=== PATIENT | female | born 1940 | race Caucasian/White ===

== ENCOUNTER 2019-05-18 09:27 | Inpatient (IN) | payer MEDICARE, BC ==
[~2019-05-18] VITALS: Ht 165.1 cm; Wt 49.5 kg
[2019-05-28 08:00] VITALS: BP 170/79
== END 2019-05-28 15:17 | disposition home health service (06) | DRG 329 ==
LOC: ED 12:38 → EDIP 13:23 → 4EST 14:41 → 4WST 23:57
PROVIDERS: ADMIT Internal Medicine; ATTEND Internal Medicine
PROC: 0DJ08ZZ Inspection of Upper Intestinal Tract, Via Natural or Artificial Opening Endoscopic (ICD-10-PCS; principal; 2019-05-20)
PROC: 0DBH8ZX Excision of Cecum, Via Natural or Artificial Opening Endoscopic, Diagnostic (ICD-10-PCS; 2019-05-20)
PROC: 0DBN8ZX Excision of Sigmoid Colon, Via Natural or Artificial Opening Endoscopic, Diagnostic (ICD-10-PCS; 2019-05-20)
PROC: 0DBM0ZZ Excision of Descending Colon, Open Approach (ICD-10-PCS; 2019-05-25)
PROC: 0DJD4ZZ Inspection of Lower Intestinal Tract, Percutaneous Endoscopic Approach (ICD-10-PCS; 2019-05-25)
PROC: 0DBL0ZZ Excision of Transverse Colon, Open Approach (ICD-10-PCS; 2019-05-25)
PROC: 3E0T3BZ Introduction of Anesthetic Agent into Peripheral Nerves and Plexi, Percutaneous Approach (ICD-10-PCS; 2019-05-25)
PROC: 8E0W0CZ Robotic Assisted Procedure of Trunk Region, Open Approach (ICD-10-PCS; 2019-05-25)
DX: C18.6 Malignant neoplasm of descending colon (principal); E43 Unspecified severe protein-calorie malnutrition; K63.3 Ulcer of intestine; I27.82 Chronic pulmonary embolism; D68.59 Other primary thrombophilia; Z68.1 Body mass index [BMI] 19.9 or less, adult; C18.7 Malignant neoplasm of sigmoid colon; C18.4 Malignant neoplasm of transverse colon; D12.0 Benign neoplasm of cecum; F17.210 Nicotine dependence, cigarettes, uncomplicated; G25.0 Essential tremor; I44.1 Atrioventricular block, second degree; M81.0 Age-related osteoporosis without current pathological fracture; R62.7 Adult failure to thrive; K57.30 Diverticulosis of large intestine without perforation or abscess without bleeding; I10 Essential (primary) hypertension; Z66 Do not resuscitate; Z79.01 Long term (current) use of anticoagulants; Z86.718 Personal history of other venous thrombosis and embolism; Z90.49 Acquired absence of other specified parts of digestive tract; Z90.710 Acquired absence of both cervix and uterus; Z79.899 Other long term (current) drug therapy; Z91.013 Allergy to seafood; Z91.048 Other nonmedicinal substance allergy status; Z91.041 Radiographic dye allergy status
CPT/HCPCS: 36415; 74177; 80048; 80053; 81003; 81288; 82962; 83690; 83735; 84484; 85025; 85610; 85730; 86850; 86900; 88305; 88309; 88341; 88342; 93005; 96374; 96375; 99285; G0378; J0690; J1100; J1170; J1650; J2405; J2550; J2704; J2710; J3010; Q9967; A4648; C9113; J0330; J0360; J1200; J2270; J3475; J3480; J3490; J7030

== ENCOUNTER → 2020-07-26 | Outpatient (CLI) | payer MEDICARE, BC ==
[~2020-07-26] MED LIST: APIX5TAB PO; CHOL10003 PO; LISI1TAB23 PO; LISI1TAB39 PO; PROP120C50 PO; VITA1TAB19 PO
[2020-07-26 12:49] LABS: ALBUMIN 3.7 g/dL (3.4-5.0); CALCIUM 9.3 mg/dL (8.5-10.1); CHLORIDE 110 mmol/L (98-107)
[2020-07-26 12:57] LABS: ALANINE AMINOTRANSFERASE 16 U/L (12-78); ALKALINE PHOSPHATASE 65 U/L (45-117); ANION GAP 2 mmol/L (5-15); BILIRUBIN,TOTAL 0.5 mg/dL (0.2-1.0); CREATININE 0.85 mg/dL (0.55-1.02); TOTAL PROTEIN 7.6 g/dL (6.4-8.2)
== END | disposition home or self-care (01) ==
LOC: STAR 10:52
PROVIDERS: ATTEND Internal Medicine Geriatric Medicine
DX: Z01.812 Encounter for preprocedural laboratory examination (principal); Z20.828 Contact with and (suspected) exposure to other viral communicable diseases; Z85.038 Personal history of other malignant neoplasm of large intestine
CPT/HCPCS: 36415; 80053; 87635; 93005

== ENCOUNTER 2020-07-31 08:46 | Day surgery (SDC) | payer MEDICARE, BC ==
[~2020-07-31] VITALS: Ht 167.6 cm; Wt 54.1 kg
[2020-07-31] MEDS ORDERED: MIDAZOLAM 1 MG/ML, 2ML ONE (09:44)
[2020-07-31] MEDS ORDERED: FENTANYL PF 100 MCG/2ML ONE (09:44)
[2020-07-31 09:47] VITALS: BP 167/74
[2020-07-31] MEDS ORDERED: CHLORHEXIDINE 15 ML UDC ONE (09:53)
[2020-07-31] MEDS ORDERED: FENTANYL PF 100 MCG/2ML IV PRN (10:00)
[2020-07-31] MEDS ORDERED: HYDROcodone/APAP 7.5-325MG/15ML UDC PO PRN (10:00)
[2020-07-31] MEDS ORDERED: ACETAMINOPHEN 325 MG TABLET PO PRN (10:00)
[2020-07-31] MEDS ORDERED: CHLORHEXIDINE 15 ML UDC MM ONE (10:00)
[2020-07-31] MEDS ORDERED: hydrALAzine 20 MG/ML, 1ML IV PRN (10:00)
[2020-07-31] MEDS ORDERED: PROMETHAZINE 25 MG/ML, 1ML IVPush PRN (10:00)
[2020-07-31] MEDS ORDERED: LACTATED RINGERS 1,000 ML IV SCH (10:00)
[2020-07-31] MEDS ORDERED: morphine SULFATE 10 MG/ML, 1ML IVPush PRN (10:00)
[2020-07-31] MEDS ORDERED: LABETALOL 5MG/ML, 20ML IV PRN (10:00)
[2020-07-31] MEDS ORDERED: ONDANSETRON 2MG/ML, 2ML IVPush PRN (10:00)
[2020-07-31] MEDS ORDERED: PROPOFOL 10 MG/ML, 20ML ONE ×2 (10:53)
== END 2020-07-31 13:10 | disposition home or self-care (01) ==
LOC: OUT 08:46
PROVIDERS: ATTEND Internal Medicine Geriatric Medicine
DX: Z08 Encounter for follow-up examination after completed treatment for malignant neoplasm (principal); C18.6 Malignant neoplasm of descending colon; K63.5 Polyp of colon; I10 Essential (primary) hypertension; F17.210 Nicotine dependence, cigarettes, uncomplicated; Z88.8 Allergy status to other drugs, medicaments and biological substances; Z91.013 Allergy to seafood; Z72.89 Other problems related to lifestyle; Z86.010 Personal history of colon polyps; Z79.01 Long term (current) use of anticoagulants; Z82.3 Family history of stroke; Z82.49 Family history of ischemic heart disease and other diseases of the circulatory system
CPT/HCPCS: 45378; J2250; J2704; J3010; J7120

== ENCOUNTER → 2020-08-31 | Outpatient (CLI) | payer MEDICARE, BC ==
[~2020-08-31] MED LIST changes: +METR-90 PO; +NEOMYCIN
[2020-08-31 14:22] LABS: ALBUMIN 3.6 g/dL (3.4-5.0); ANION GAP 5 mmol/L (5-15); CALCIUM 9.2 mg/dL (8.5-10.1); CHLORIDE 110 mmol/L (98-107)
[2020-08-31 14:27] LABS: ALANINE AMINOTRANSFERASE 14 U/L (12-78); ALKALINE PHOSPHATASE 66 U/L (45-117); BILIRUBIN,TOTAL 0.4 mg/dL (0.2-1.0); CREATININE 0.93 mg/dL (0.55-1.02); TOTAL PROTEIN 7.4 g/dL (6.4-8.2)
[2020-08-31 14:33] LABS: BASOPHILS % (AUTO) 1 % (0-1); EOSINOPHILS % (AUTO) 1 % (1-7); LYMPHOCYTES % (AUTO) 21 % (22-44); MEAN CORPUSCULAR HEMOGLOBIN 24.1 pg (27.0-34.8); MEAN CORPUSCULAR HGB CONC 31.3 g/dL (32.4-35.8); MEAN PLATELET VOLUME 9.8 fL (7.4-10.4); MONOCYTES % (AUTO) 8 % (2-9); NEUTROPHILS % (AUTO) 70 % (42-75); PLATELET COUNT 265 x10^3/uL (130-400); RED BLOOD COUNT 4.41 x10^6/uL (3.82-5.3)
[2020-08-31 14:58] LABS: MD NO
== END | disposition home or self-care (01) ==
LOC: STAR 12:11
PROVIDERS: ATTEND Surgery
DX: Z01.812 Encounter for preprocedural laboratory examination (principal); Z20.828 Contact with and (suspected) exposure to other viral communicable diseases
CPT/HCPCS: 36415; 80053; 85025; 87635

== ENCOUNTER 2020-09-05 08:18 | Inpatient (IN) | payer MEDICARE, BC ==
[~2020-09-05] VITALS: Ht 167.6 cm; Wt 58.0 kg
[~2020-09-05 08:18] MED LIST changes: +BUPIVACAINE/PF 0.5% ONE
[2020-09-05] MEDS ORDERED: HYDROmorphone 1 MG/ML, 1ML INJ IVPush PRN (09:00)
[2020-09-05] MEDS ORDERED: EPHEDRINE 50 MG/ML, 1ML IVPush PRN (09:00)
[2020-09-05] MEDS ORDERED: hydrALAzine 20 MG/ML, 1ML IV PRN (09:00)
[2020-09-05] MEDS ORDERED: PROMETHAZINE 25 MG/ML, 1ML IVPush PRN (09:00)
[2020-09-05] MEDS ORDERED: ONDANSETRON 2MG/ML, 2ML IVPush PRN ×2 (09:00→11:30)
[2020-09-05] MEDS ORDERED: ACETAMINOPHEN 325 MG TABLET PO PRN (09:00)
[2020-09-05] MEDS ORDERED: LABETALOL 5MG/ML, 20ML IV PRN (09:00)
[2020-09-05] MEDS ORDERED: OXYcodone 5 MG/5 ML ORAL.SOL UDC PO PRN (09:00)
[2020-09-05] MEDS ORDERED: LORazepam 2 MG/ML, 1ML IVPush PRN ×2 (09:00→11:30)
[2020-09-05] MEDS ORDERED: METHOCARBAMOL 1,000 MG in DEXTROSE 5% 100 ML IV PRN (09:00)
[2020-09-05 09:21] VITALS: BP 137/80
[2020-09-05] MEDS ORDERED: FENTANYL PF 250 MCG/5ML ONE (09:23)
[2020-09-05] MEDS ORDERED: CHLORHEXIDINE 15 ML UDC ONE (09:24)
[2020-09-05] MEDS ORDERED: CHLORHEXIDINE 15 ML UDC MM ONE (09:30)
[2020-09-05] MEDS ORDERED: LACTATED RINGERS 1,000 ML IV SCH (09:30)
[2020-09-05] MEDS ORDERED: ROCURONIUM 10MG/ML,5ML ONE (09:37)
[2020-09-05] MEDS ORDERED: KETOROLAC 30 MG/1 ML ONE (09:37)
[2020-09-05] MEDS ORDERED: NEOSTIGMINE 1 MG/ML, 10ML ONE (09:37)
[2020-09-05] MEDS ORDERED: CEFAZOLIN 1,000 MG ONE (09:37)
[2020-09-05] MEDS ORDERED: GLYCOPYRROLATE 0.2MG/1ML, 5ML ONE (09:37)
[2020-09-05] MEDS ORDERED: LIDOCAINE 4%, 4 ML SYR/CANN TP ONE (09:37)
[2020-09-05] MEDS ORDERED: ONDANSETRON 2MG/ML, 2ML ONE ×2 (09:37→12:33)
[2020-09-05] MEDS ORDERED: DEXAMETHASONE 4 MG/ML, 1ML ONE (09:37)
[2020-09-05] MEDS ORDERED: SUCCINYLCHOLINE 20 MG/ML, 10ML ONE (09:37)
[2020-09-05] MEDS ORDERED: PROPOFOL 10 MG/ML, 20ML ONE (09:37)
[2020-09-05] MEDS ORDERED: DIPHENHYDRAMINE 25 MG CAPSULE PO PRN (11:30)
[2020-09-05] MEDS ORDERED: DEXAMETHASONE 4 MG/ML, 1ML IVPush PRN (11:30)
[2020-09-05] MEDS ORDERED: CALCIUM CARBONATE 500 MG TAB.CHEW PO PRN (11:30)
[2020-09-05] MEDS ORDERED: TRAZODONE 50MG TABLET PO PRN (11:30)
[2020-09-05] MEDS ORDERED: HALOPERIDOL 5 MG/ML IVPush PRN (11:30)
[2020-09-05] MEDS: ACETAMINOPHEN 500 MG TABLET PO SCH ×3 (11:30→23:30)
[2020-09-05] MEDS: D5%-0.45NACL+KCL 20MEQ 1,000 ML IV SCH ×2 (11:30→13:50)
[2020-09-05] MEDS ORDERED: MORPHINE SULFATE 4 MG/ML, 1ML IVPush PRN (11:30)
[2020-09-05] MEDS ORDERED: DIPHENHYDRAMINE 50 MG/ML, 1ML IVPush PRN (11:30)
[2020-09-05] MEDS ORDERED: OXYcodone 5 MG/5 ML ORAL.SOL UDC ONE (11:33)
[2020-09-05] MEDS ORDERED: FENTANYL PF 100 MCG/2ML ONE (11:33)
[2020-09-05] MEDS ORDERED: HYDROmorphone 1 MG/ML, 1ML INJ ONE (11:33)
[2020-09-05] MEDS: FENTANYL PF 100 MCG/2ML IV PRN ×2 (11:35→11:42)
[2020-09-05 13:42] VITALS: BP 119/54
[2020-09-05] MEDS: ACETAMINOPHEN 100 ML IVPB SCH ×2 (13:50→19:47)
[2020-09-05] MEDS ORDERED: ENOXAPARIN 40 MG/0.4 ML SQ SCH (14:00)
[2020-09-05 19:10] VITALS: BP 124/74
[2020-09-05] MEDS: OXYcodone IR 5MG TABLET PO PRN (19:56)
[2020-09-05 23:19] VITALS: BP 145/56
[2020-09-06] MEDS: ACETAMINOPHEN 100 ML IVPB SCH ×2 (01:57→08:43)
[2020-09-06 03:21] LABS: BASOPHILS % (AUTO) 0 % (0-1); EOSINOPHILS % (AUTO) 0 % (1-7); LYMPHOCYTES % (AUTO) 6 % (22-44); MEAN CORPUSCULAR HEMOGLOBIN 23.7 pg (27.0-34.8); MEAN CORPUSCULAR HGB CONC 31.2 g/dL (32.4-35.8); MEAN PLATELET VOLUME 9.5 fL (7.4-10.4); MONOCYTES % (AUTO) 7 % (2-9); NEUTROPHILS % (AUTO) 87 % (42-75); PLATELET COUNT 208 x10^3/uL (130-400); RED BLOOD COUNT 3.78 x10^6/uL (3.82-5.3); RED CELL DISTRIBUTION WIDTH 16.5 % (9.6-15.2)
[2020-09-06 03:23] LABS: MD NO
[2020-09-06 03:24] LABS: ANION GAP 10 mmol/L (5-15); CALCIUM 8.1 mg/dL (8.5-10.1); CHLORIDE 102 mmol/L (98-107); CREATININE 1.28 mg/dL (0.55-1.02)
[2020-09-06 03:25] VITALS: BP 144/61
[2020-09-06] MEDS: OXYcodone IR 5MG TABLET PO PRN (04:10)
[2020-09-06] MEDS: ACETAMINOPHEN 500 MG TABLET PO SCH ×3 (04:14→21:18)
[2020-09-06 06:30] VITALS: BP 144/71
[2020-09-06] MEDS: PROPRANOLOL 120 MG CAP.SA.24H PO SCH (08:44)
[2020-09-06] MEDS: HYDROCHLOROTHIAZIDE 12.5 MG CAPSULE PO SCH (08:45)
[2020-09-06] MEDS: LISINOPRIL 20 MG TABLET PO SCH (08:45)
[2020-09-06 13:45] VITALS: BP 131/70
[2020-09-06 19:38] VITALS: BP 132/66
[2020-09-07 02:22] VITALS: BP 110/57
[2020-09-07 03:31] LABS: ANION GAP 9 mmol/L (5-15); CALCIUM 8.3 mg/dL (8.5-10.1); CHLORIDE 104 mmol/L (98-107); CREATININE 1.11 mg/dL (0.55-1.02)
[2020-09-07] MEDS: ACETAMINOPHEN 500 MG TABLET PO SCH ×4 (03:39→21:00)
[2020-09-07 03:50] LABS: BASOPHILS % (AUTO) 1 % (0-1); EOSINOPHILS % (AUTO) 1 % (1-7); LYMPHOCYTES % (AUTO) 20 % (22-44); MEAN CORPUSCULAR HEMOGLOBIN 23.9 pg (27.0-34.8); MEAN CORPUSCULAR HGB CONC 31.5 g/dL (32.4-35.8); MEAN PLATELET VOLUME 9.6 fL (7.4-10.4); MONOCYTES % (AUTO) 12 % (2-9); NEUTROPHILS % (AUTO) 67 % (42-75); PLATELET COUNT 179 x10^3/uL (130-400); RED BLOOD COUNT 3.49 x10^6/uL (3.82-5.3); RED CELL DISTRIBUTION WIDTH 16.6 % (9.6-15.2)
[2020-09-07 03:52] LABS: MD NO
[2020-09-07 07:26] VITALS: BP 136/57
[2020-09-07] MEDS: LISINOPRIL 20 MG TABLET PO SCH (08:51)
[2020-09-07] MEDS: PROPRANOLOL 120 MG CAP.SA.24H PO SCH (08:51)
[2020-09-07] MEDS: HYDROCHLOROTHIAZIDE 12.5 MG CAPSULE PO SCH (08:52)
[2020-09-07 13:42] VITALS: BP 124/70
[2020-09-07 18:22] VITALS: BP 108/58
[2020-09-08] MEDS: ACETAMINOPHEN 500 MG TABLET PO SCH ×3 (00:36→12:30)
[2020-09-08 01:52] VITALS: BP 126/65
[2020-09-08 05:06] LABS: MEAN CORPUSCULAR HEMOGLOBIN 24.4 pg (27.0-34.8); MEAN CORPUSCULAR HGB CONC 31.9 g/dL (32.4-35.8); MEAN PLATELET VOLUME 9.7 fL (7.4-10.4); PLATELET COUNT 192 x10^3/uL (130-400); RED BLOOD COUNT 3.53 x10^6/uL (3.82-5.3); RED CELL DISTRIBUTION WIDTH 17.2 % (9.6-15.2)
[2020-09-08 05:07] LABS: ANION GAP 4 mmol/L (5-15); CALCIUM 8.5 mg/dL (8.5-10.1); CHLORIDE 110 mmol/L (98-107); CREATININE 0.88 mg/dL (0.55-1.02)
[2020-09-08 05:30] LABS: BASOPHILS % (AUTO) 0 % (0-1); LYMPHOCYTES % (AUTO) 20 % (22-44); NEUTROPHILS % (AUTO) 67 % (42-75)
[2020-09-08 05:31] LABS: EOSINOPHILS % (AUTO) 1 % (1-7); MD NO; MONOCYTES % (AUTO) 10 % (2-9)
[2020-09-08 07:45] VITALS: BP 132/69
[2020-09-08] MEDS: HYDROCHLOROTHIAZIDE 12.5 MG CAPSULE PO SCH (09:40)
[2020-09-08] MEDS: LISINOPRIL 20 MG TABLET PO SCH (09:40)
[2020-09-08] MEDS: PROPRANOLOL 120 MG CAP.SA.24H PO SCH (09:40)
[2020-09-08 12:57] VITALS: BP 116/68
== END 2020-09-08 13:20 | disposition home or self-care (01) | DRG 330 ==
LOC: ORIP 08:18 → EDSTATUS 10:30 → 4NE 13:05 → DCLOUNGE 09-08 13:10
PROVIDERS: ADMIT Surgery; ATTEND Surgery
PROC: 0DBU4ZZ Excision of Omentum, Percutaneous Endoscopic Approach (ICD-10-PCS; 2020-09-05)
PROC: 0DTF4ZZ Resection of Right Large Intestine, Percutaneous Endoscopic Approach (ICD-10-PCS; principal; 2020-09-05 10:00)
DX: K63.5 Polyp of colon (principal); R71.0 Precipitous drop in hematocrit; I10 Essential (primary) hypertension; I25.10 Atherosclerotic heart disease of native coronary artery without angina pectoris; I73.9 Peripheral vascular disease, unspecified; Z85.038 Personal history of other malignant neoplasm of large intestine; R33.9 Retention of urine, unspecified; Z91.013 Allergy to seafood
CPT/HCPCS: 36415; 80048; 85025; 88307; G0378; J0131; J0690; J1100; J1170; J1650; J1885; J2405; J2704; J2710; J3010; J0330; J2800; J3480; J7120